=== PATIENT | male | born 1950 | race Caucasian/White ===

== ENCOUNTER 2021-05-31 09:35 | Emergency (ER) | payer MEDICARE ==
[~2021-05-31] VITALS: Ht 177.8 cm; Wt 93.9 kg
--- NOTE | 2021-05-31 11:14 | REP ---
INDICATION: right groin pain. COMPARISON: None. TECHNIQUE: Real-time sonographic evaluation of inguinal regions performed. FINDINGS: There is a small right inguinal hernia containing fat. This is reducible. No other abnormalities are seen bilaterally. IMPRESSION: Small reducible right inguinal hernia containing fat. <Electronically signed by Elmo Valdivia > 05/31/21 [id number]
[2021-05-31 12:06] VITALS: BP 119/61
== END 2021-05-31 12:11 | disposition home or self-care (01) ==
LOC: M ED 09:35
DX: K40.90 Unilateral inguinal hernia, without obstruction or gangrene, not specified as recurrent (principal)